=== PATIENT | female | born 1990 | race Hispanic/Latino ===

== ENCOUNTER 2023-06-11 05:59 | Inpatient (IN) | payer OTHER, SELFPAY ==
[2023-06-11] VITALS (67 sets, daily range): BP systolic 98–131; BP diastolic 53–84; PULSE 88–134; RESP 16–18; TEMP 36.2–37.6; O2SAT 96–100
--- NOTE | 2023-06-11 05:59 | LDADM ---
This patient, Cynthia Mccain, was admitted to Labor/Delivery/Recovery 104 on 06/11/23 at 05:59. Plans for labor, pain management and were discussed with patient. Patient/family oriented to hospital policies and general routines including ID bracelet, bed and alarms, visiting hours, pain management, procedures, bathroom and other care routines, personal items, smoking policy, room service/diet and guest tray routines, infant security routines, and visiting hours. Patient/Family are encouraged to report perceived risks to care and to ask questions if they do not understand what they are told or what they should do. See OBIX for further documentation.
--- NOTE | 2023-06-11 06:20 | PM.IMHP ---
H&P: HPI History of Present Illness Date/Time: 06/11/23 06:20 Chief Complaint: Induction of labor at term Narrative: this is a very pleasant 32-year-old 3 para 2 whose last menstrual period was 09/09/2022, EDC is 06/16/2023, presents at 39 weeks gestation for induction of labor. Her cervix is advanced at 4cm. She had a transfer of care mid but had early visits confirming dates. Risks and benefits of induction reviewed she is negative for group B strep PMFSH Family History Family History Other Unknown family medical history Social History Social History Substance use: never Spiritual care concerns: No Meds Home Medications and Allergies Home Medications Medication Instructions Recorded Confirmed Type vits no.126-ferrous fum 1 tablet PO DAILY 06/10/23 06/10/23 History 28 mg iron-folic acid 800 mcg tablet (Classic ) Allergies Allergy/AdvReac Type Severity Reaction Status Date / Time No Known Allergies Allergy Verified 06/10/23 13:57 Vital Signs Vital Signs - 24 hr 06/11/23 06:16 Pulse Rate 114 H Blood Pressure 109/82 Exam Const: General: cooperative, healthy appearing and comfortable Nutritional Appearance: average body habitus Orientation/consciousness: oriented to person, oriented to place and oriented to time HENMT: Head: normal to inspection Chest: Chest palpation & inspection: normal inspection of the chest Resp: Effort & Inspection: normal respiratory effort Cardio: Rate: regular rate Rhythm: regular rhythm Heart sounds: S1 normal heart sound present and S2 normal heart sound present GI: Inspection: normal to inspection ( uterus soft and gravid) : External Female Exam: normal external appearance Speculum Exam - Vagina: normal appearance of the vagina Speculum Exam - Cervix: normal appearance of the cervix ( 80/1. AROM clear. FHT is reassuring) Assessment and Plan Assessment and plan (1) Term : Code(s): Z34.90 - Encounter for supervision of normal , unspecified, unspecified trimester Status: Acute Plan medical induction of labor. Spontaneous vaginal delivery expected. She is an epidural candidate
[2023-06-11] MEDS: OXYTOCIN 30 UNITS/NS 500 ML 30 UNITS/500 ML BAG IV CONT (06:51)
[2023-06-11] MEDS: LACTATED RINGERS 1,000 ML 125 ML IV CONT ×2 (06:52→09:55)
[2023-06-11 06:58] LABS: Basophils Percent Auto 0.2 % (0.2-1.2); Eosinophils Absolute Auto 0.1 K/mm3 (0-0.3); Eosinophils Percent Auto 0.9 % (0-4.4); Hematocrit 33.7 % (37.0-47.0); Hemoglobin 10.9 g/dL (12.0-15.0); Immature Granulocyte Absolute 0.08 K/mm3 (0.00-0.031); Immature Granulocyte Percent A 0.8 % (0-0.5); Lymphocytes Absolute Auto 2.57 K/mm3 (0.9-3.2); Lymphocytes Percent Auto 26.3 % (18.3-44.2); Mean Corpuscular HGB Conc 32.3 g/dl (32-36); Mean Corpuscular Volume 86.6 fl (80-100); Mean Platelet Volume 10.6 fl (7.4-10.4); Monocytes Absolute Auto 0.6 K/mm3 (0.1-0.6); Monocytes Percent Auto 6.1 % (2.6-8.5); Neutrophils Absolute Auto 6.4 K/mm3 (1.3-6.7); Neutrophils Percent Auto 65.7 % (45.5-73.1); Platelet Count Result 240 k/mm3 (150-375); Red Blood Count 3.89 M/mm3 (4.2-5.4); Red Cell Distribution Width 13.6 % (11.5-14.5); White Blood Count 9.8 K/mm3 (4.5-10.0)
[2023-06-11 07:36] LABS: HIV 1/2 Ab P24 Ag Result Negative (Negative)
--- NOTE | 2023-06-11 10:08 | WPDANESEPP ---
Anes - Eval Pre Procedure Procedure: Labor epidural Date/Time: 06/11/23 10:08 Surgeon: Maximino King Preop Diagnosis: Pain during labor Pre Op Diagnosis: iol Patient Data Age: 32 Gender: F Height: Weight: 72.5 kg Last Vital Signs Temp 36.3 C L 06/11/23 09:58 Pulse 121 H 06/11/23 10:01 BP 108/79 06/11/23 10:01 O2 Del Method Room Air 06/11/23 06:29 Allergies Allergy/AdvReac Type Severity Reaction Status Date / Time No Known Allergies Allergy Verified 06/10/23 13:57 Home Medications Medication Instructions Recorded Confirmed Type vits no.126-ferrous fum 1 tablet PO DAILY 06/10/23 06/11/23 History 28 mg iron-folic acid 800 mcg tablet (Classic ) Laboratory Tests 06/11/23 06:26 WBC 9.8 K/mm3 (4.5-10.0) RBC 3.89 L M/mm3 (4.2-5.4) Hgb 10.9 L g/dL (12.0-15.0) Hct 33.7 L % (37.0-47.0) MCV 86.6 fl (80-100) MCH 28.0 pg (26-34) MCHC 32.3 g/dl (32-36) RDW 13.6 % (11.5-14.5) Plt Count 240 k/mm3 (150-375) MPV 10.6 H fl (7.4-10.4) Immature Gran % (Auto) 0.8 H % (0-0.5) Neut % (Auto) 65.7 % (45.5-73.1) Lymph % (Auto) 26.3 % (18.3-44.2) [place] % (Auto) 6.1 % (2.6-8.5) Eos % (Auto) 0.9 % (0-4.4) Baso % (Auto) 0.2 % (0.2-1.2) Lymph # (Auto) 2.57 K/mm3 (0.9-3.2) [place] # (Auto) 0.6 K/mm3 (0.1-0.6) Eos # (Auto) 0.1 K/mm3 (0-0.3) Baso # (Auto) 0.0 K/mm3 (0.0-0.1) Abs Immat Gran (auto) 0.08 H K/mm3 (0.00-0.031) Absolute Neuts (auto) 6.4 K/mm3 (1.3-6.7) Absolute Nucleated RBC 0.0 K/mm3 (0.0-0.012) Nucleated RBC % 0.0 % (0.0-0.2) RPR Pending HIV 1&2 Ab/P24 Ag 4thGn Negative (Negative) Blood Type O Positive Antibody Screen Negative Patient hx anesthesia problems: none Family hx anesthesia problems: none Results Review: All pre-operative results and documents have been reviewed as part of the pre-operative evaluation. [facility] Family History Family History Other Unknown family medical history Social History Social History Smoking status: Never smoker Second hand tobacco smoke exposure: No Substance use: never Lack of Transportation: No Lack of Food: Never True Current Housing: I Have Housing Concerned About Future Housing: No Difficulty Paying Gas/Electric Bills: No Difficulty Paying for Meds: No Currently Unemployed: No Education: Grade School Difficulty w/ Childcare or Family Care: No Spiritual care concerns: No Exam Day of Procedure 06/11/23 10:08 Patient weight: normal Heart: regular rate and rhythm Lungs: clear to auscultation Airway: Mallampati scale class II Neurological: alert and oriented
--- NOTE | 2023-06-11 10:13 | PC.NURSE ---
1000 - Introductions were made with interpretation assistance with Nepali speaking Cynthia CAMPOS. Mother shared how she would like to feed her baby with along with her past bottle feeding experience. Encouraged mother to place [id number] until the first feeding if infant is stable and to wait on the weight to help stabilize, reduce stress, and improve latching by allowing time to explore parent's chest using instincts. Resources provided with Nepali guide.
--- NOTE | 2023-06-11 11:50 | PM.OBPRVD ---
OB - Delivery Note Procedure Delivery date: 06/11/23 Procedure: mil Induction method: AROM Delivery augmentation: Pitocin Delivery monitor: External FHT and External Uterine Route of delivery: Episiotomy description: None Laceration Description: None Specimen: No Quantitative Blood Loss (ml): 60 Anesthesia type: Epidural Disposition: Floor Baby Date of : 06/11/23 Time of : 11:41 Weeks of gestation at delivery: 39 gender: Female presentation: vertex position: Right Occiput Anterior Placenta delivery description: Spontaneous Cord Vessel Description: 3 Vessels, Nuchal Cord, Loose and Delayed Cord Clamping score one minute: 8 score five minutes: 9
--- NOTE | 2023-06-11 11:54 | PM.DS ---
DS: Admitting Diagnosis Discharge Date Admitting Diagnosis Term DS: Discharge Diagnosis Discharge Diagnosis (1) Term : Code(s): Z34.90 - Encounter for supervision of normal , unspecified, unspecified trimester Status: Acute DS: Summary Hospital Course Reason for hospitalization: medical induction of labor at term Hospital Course: patient underwent successful medical induction of labor at term on 06/11/2023. Her hospital course unremarkable. She remained afebrile. She was up, eating regular diet, ambulating, voiding without difficulty, and generally without complaints. Time Spent with Patient Time attestation: Total time spent providing and/or coordinating discharge services: Exam Const: General: cooperative, healthy appearing, comfortable and average body habitus Orientation/consciousness: oriented to person, oriented to place and oriented to time HENMT: Head: normal to inspection Resp: Effort & Inspection: normal respiratory effort Cardio: Rate: regular rate Rhythm: regular rhythm Heart sounds: S1 normal heart sound present and S2 normal heart sound present GI: Inspection: normal to inspection ( Fundus firm below the umbilicus) DS: Data Data Completed and Pending Labs on day of discharge: Labs from last 24 hours 06/11/23 06:26 WBC 9.8 RBC 3.89 L Hgb 10.9 L Hct 33.7 L MCV 86.6 MCH 28.0 MCHC 32.3 RDW 13.6 Plt Count 240 MPV 10.6 H Immature Gran % (Auto) 0.8 H Neut % (Auto) 65.7 Lymph % (Auto) 26.3 [place] % (Auto) 6.1 Eos % (Auto) 0.9 Baso % (Auto) 0.2 Lymph # (Auto) 2.57 [place] # (Auto) 0.6 Eos # (Auto) 0.1 Baso # (Auto) 0.0 Abs Immat Gran (auto) 0.08 H Absolute Neuts (auto) 6.4 Absolute Nucleated RBC 0.0 Nucleated RBC % 0.0 RPR Pending HIV 1&2 Ab/P24 Ag 4thGn Negative Blood Type O Positive Antibody Screen Negative Discharge Plan Discharge Attending physician on discharge: Delta Beth Discharging Clinician: Delta Beth Patient Disposition: Home, Self-Care Activity: may shower and pelvic rest Diet: heart healthy Wound Care Instructions: follow printed instructions Patient Instructions: Antibiotic Form Stand Alone Forms: General Discharge Information Follow-up/Referrals: Delta Beth MD [Physician] - Discharge Medications: No Action Classic 28 mg iron- 800 mcg Tablet 1 tablet PO DAILY Date of admission: 06/11/23 05:59 Primary Care Provider: Herb,Maria Del Carmen Admitting Provider: Delta Beth Attending physician on admission: Delta Beth Condition: Stable
[2023-06-11] MEDS: OXYTOCIN 30 UNITS/NS 500 ML 30 UNITS/500 ML BAG 125 UNITS IV CONT (12:22)
--- NOTE | 2023-06-11 14:24 | OBPPTRN ---
Patient transferred to post room #276 via wheelchair. Support person present. Oriented to unit, room, information board, rooming in, admission packet and security measures. Patient verbalizes understanding.
--- NOTE | 2023-06-11 15:00 | PC.NURSE ---
Breast pump provided due to maternal preference. Instructions given on cleaning, care, usage, that there should be no pain, pumping schedule for milk production, collection, and storage of human milk. Patient was assessed for correct placement, flange size, to pump for comfort and nipple stretching/stimulation for adequate milk production every 3 hours (8 times in 24 hours) 1-2 times at night.
[2023-06-11] MEDS: DOCUSATE SODIUM 100 MG CAPSULE PO (15:01)
[2023-06-11] MEDS: IBUPROFEN 600 MG TABLET PO (15:01)
[2023-06-12 03:15] VITALS: BP 91/61; PULSE 94; RESP 14; TEMP 36.7; O2SAT 99
[2023-06-12 05:53] LABS: Hematocrit 32.5 % (37.0-47.0); Hemoglobin 10.6 g/dL (12.0-15.0)
--- NOTE | 2023-06-12 06:01 | P.PNOB_ITS ---
OB - PN: Subj Subjective Date/time seen: 06/12/23 06:01 Patient comments: no complaints and pain well controlled baby status: doing well OB - PN: Obj Data Labs 06/11/23 06:26 Labs: Laboratory Results - last 24 hr 06/11/23 06:26 WBC 9.8 RBC 3.89 L Hgb 10.9 L Hct 33.7 L MCV 86.6 MCH 28.0 MCHC 32.3 RDW 13.6 Plt Count 240 MPV 10.6 H Immature Gran % (Auto) 0.8 H Neut % (Auto) 65.7 Lymph % (Auto) 26.3 [place] % (Auto) 6.1 Eos % (Auto) 0.9 Baso % (Auto) 0.2 Lymph # (Auto) 2.57 [place] # (Auto) 0.6 Eos # (Auto) 0.1 Baso # (Auto) 0.0 Abs Immat Gran (auto) 0.08 H Absolute Neuts (auto) 6.4 Absolute Nucleated RBC 0.0 Nucleated RBC % 0.0 HIV 1&2 Ab/P24 Ag 4thGn Negative Blood Type O Positive Antibody Screen Negative OB - PN A/P Plan day: 1 Plan: routine care, discharge home and follow up 6 weeks Time Spent With Patient Time: Total time spent is greater than 50% in coordination of care (as documented) at patient's floor/unit and/or counseling patient: Time with patient: less than 15 minutes Exam Const: General: cooperative, healthy appearing and comfortable Nutritional Appearance: average body habitus Orientation/consciousness: oriented to person, oriented to place and oriented to time Resp: Effort & Inspection: normal respiratory effort Cardio: Rate: regular rate Rhythm: regular rhythm Heart sounds: S1 normal heart sound present and S2 normal heart sound present GI: Inspection: normal to inspection ( fundus firm below umbilicus)
--- NOTE | 2023-06-12 06:03 | PM.OBPNVD ---
OB - PN: Subj Subjective Date/time seen: 06/12/23 06:03 Patient comments: no complaints and pain well controlled baby status: doing well OB - PN: Obj Data Labs 06/11/23 06:26 Labs: Laboratory Results - last 24 hr 06/11/23 06:26 WBC 9.8 RBC 3.89 L Hgb 10.9 L Hct 33.7 L MCV 86.6 MCH 28.0 MCHC 32.3 RDW 13.6 Plt Count 240 MPV 10.6 H Immature Gran % (Auto) 0.8 H Neut % (Auto) 65.7 Lymph % (Auto) 26.3 [place] % (Auto) 6.1 Eos % (Auto) 0.9 Baso % (Auto) 0.2 Lymph # (Auto) 2.57 [place] # (Auto) 0.6 Eos # (Auto) 0.1 Baso # (Auto) 0.0 Abs Immat Gran (auto) 0.08 H Absolute Neuts (auto) 6.4 Absolute Nucleated RBC 0.0 Nucleated RBC % 0.0 HIV 1&2 Ab/P24 Ag 4thGn Negative Blood Type O Positive Antibody Screen Negative OB - PN A/P Plan day: 1 Plan: routine care, discharge home and follow up 6 weeks Time Spent With Patient Time: Total time spent is greater than 50% in coordination of care (as documented) at patient's floor/unit and/or counseling patient: Time with patient: less than 15 minutes Exam Const: General: cooperative, healthy appearing and comfortable Nutritional Appearance: average body habitus Orientation/consciousness: oriented to person, oriented to place and oriented to time Resp: Effort & Inspection: normal respiratory effort GI: Inspection: normal to inspection ( fundus firm below umbilicus)
[2023-06-12 07:55] VITALS: BP 107/66; PULSE 95; RESP 18; TEMP 37.3; O2SAT 99
[2023-06-12] MEDS: DOCUSATE SODIUM 100 MG CAPSULE PO (08:49)
[2023-06-12] MEDS: IBUPROFEN 600 MG TABLET PO (08:49)
[2023-06-12] MEDS: MULTIVIT/MIN/PREN/FOL AC/IRON TABLET 1 TAB PO (08:49)
[2023-06-12 09:50] LABS: Rapid Plasma Reagin Non-Reactive (NonReactive)
--- NOTE | 2023-06-12 10:49 | WPDANLDPN2 ---
Anes-Prog Note L&D Date/Time: 06/12/23 10:49 Comfortable throughout: labor and delivery Neuraxial method: epidural Epidural/Spinal procedure site: clean & non-tender Neuro status: Neuro function grossly intact. Cardiovascular status: normal Respiratory status: normal Airway patency: baseline Mental status: baseline Post-Op hydration status: normal Vital Signs: Last Vital Signs Temp 37.3 C 06/12/23 07:55 Pulse 95 06/12/23 07:55 Resp 18 06/12/23 07:55 BP 107/66 06/12/23 07:55 Pulse Ox 99 06/12/23 07:55 O2 Del Method Room Air 06/12/23 07:10 Pain score (VAS): 12/10 I/O: Intake & Output 06/11/23 06/12/23 06/12/23 23:59 07:59 15:59 Intake Total 740 Balance 740 Post-procedural complaints: none Patient feedback: Patient satisfied with anesthetic care.
--- NOTE | 2023-06-12 12:00 | PC.NURSE ---
Patient viewed the discharge video Mother & Baby Care, The First Two Weeks . Patient was given the opportunity and encouraged to ask questions. Patient verbalized understanding of information shared and has been given the mother/baby guide for home reference.
[2023-06-13 08:43] VITALS: BP 94/64; PULSE 84; RESP 18; TEMP 36.9; O2SAT 98
== END 2023-06-12 15:46 | disposition home or self-care (01) | DRG 560 ==
LOC: ANHLDR 11:55 → ANHOB2 14:34
PROVIDERS: Admitting Provider Obstetrics & Gynecology; PCP Registered Nurse; Visit Provider Obstetrics & Gynecology
DX: O98.32 Other infections with a predominantly sexual mode of transmission complicating childbirth (principal); A60.09 Herpesviral infection of other urogenital tract; Z37.0 Single live birth; Z3A.39 39 weeks gestation of pregnancy; O69.81X0 Labor and delivery complicated by cord around neck, without compression, not applicable or unspecified
CPT/HCPCS: 36415; 85014; 85018; 85025; 86592; 86703; 86850; 86900; 86901; A9270; G0432; J2590; J2795; J7120

== ENCOUNTER 2023-07-25 14:27 | Outpatient (CLI) | payer OTHER, SELFPAY ==
--- NOTE | ~2023-07-25 | CT_ITS ---
EXAMINATION: CT sinus wo con DATE: 07/25/2023 14:54 INDICATION: Periorbital pain. TECHNIQUE: Computed tomography (CT) of the paranasal sinuses was performed without intravenous contra st. The dose-length product was 297.72 mGy-cm. Automated exposure control and iterative reconstructio n technique were employed. COMPARISON: None FINDINGS: Paranasal sinuses are pneumatized. No mucosal thickening or air-fluid levels. Rightward litzy al septal deviation. Left sided ivan bullosa. Ostiomeatal units are patent. Hypertrophy of the infe rior turbinates. Mastoids are pneumatized. IMPRESSION: 1. No significant sinus disease. Reviewed, dictated and finalized at location B.
== END 2023-07-25 14:28 | disposition home or self-care (01) ==
PROVIDERS: PCP Registered Nurse; Visit Provider Registered Nurse
DX: H57.11 Ocular pain, right eye (principal); J34.2 Deviated nasal septum
CPT/HCPCS: 70486